=== PATIENT | male | born 1970 | race Caucasian/White ===

== ENCOUNTER → 2020-03-31 11:06 | Outpatient (BNVA) | payer BC, SELFPAY | PROVIDERS: Visit Provider Surgery | DX: R10.9 Unspecified abdominal pain (principal); Z20.828 Contact with and (suspected) exposure to other viral communicable diseases; Z11.59 Encounter for screening for other viral diseases | CPT/HCPCS: 87635 ==

== ENCOUNTER 2020-04-03 07:16 | Day surgery (SDC) | payer BC, SELFPAY ==
[2020-04-01 12:40] VITALS: BMI 25.3
[2020-04-03 07:26] VITALS: BP 148/93; PULSE 80; RESP 18; TEMP 36; O2SAT 97
[2020-04-03] MEDS: sodium chloride 0.9% 1,000 ML 30 ML IV (07:39)
--- NOTE | 2020-04-03 07:45 | ANES.PREANE2 ---
Pre-Anesthetic Assessment Pre-Anesthetic Assessment: Height/Weight: Height 1.93 m Weight 94.347 kg Temp Pulse Resp BP Pulse Ox 96.8 F L 80 18 148/93 97 04/03/20 07:26 04/03/20 07:26 04/03/20 07:26 04/03/20 07:26 04/03/20 07:26 Preop Diagnosis: family Hx colon cancer Proposed Procedure: Operation Date: 04/03/20 08:30 Proposed Procedures p EGD/Colon 13647 R10.31 R10.31(Not Applicable) - Obed Sow MD s Colonoscopy 44378 R10.13(Not Applicable) - Obed Sow MD Familial anesthetic complications: None Was Beta Robby taken within 24 hours: N/A Last intake: Intake Last Liquid Date 04/02/20 Last Liquid Time 20:00 Last Solid Date 04/01/20 Last Solid Time 18:00 Social: Social History: No alcohol and No tobacco Exam: Pre-Anes Outpt Exam: alert, oriented x 3, clear to auscultation bilaterally and regular rate & rhythm Airway: Cervical ROM: WNL MP: 2 Dentition: Other (bridges) Pulmonary: Comments: allergies Metabolic: Metabolic: Hyperlipidemia Anesthetic Plan: ASA status: 1 Anesthesia: MAC Risk of > 500 ml blood loss (7ml/kg in children): No Meds/Allergies Current Medications: Current Medications Generic Name Dose Route Start Last Admin Trade Name Freq PRN Reason Stop Dose Admin Sodium Chloride 1,000 mls @ 30 ml s/hr 04/03/20 07:30 04/03/20 07:39 Sodium Chloride 0.9% IV 04/04/20 07:29 30 mls/hr .Q24H RASHAD Administration PFSH Anesthesia PFSH: Surgical History H/O circumcision H/O esophagogastroduodenoscopy H/O laser assisted in situ keratomileusis H/O left inguinal hernia repair Family History Mother Anesthesia complication Clotting disorder Cancer breast Grandmother CAD (coronary artery disease) Cancer paternal colon Diabetes Denies family history of Bleeding disorder Social History Smoking and tobacco status: never smoked Alcohol intake: current Alcohol intake frequency: holidays/special occasions only Lives independently: Yes Marital status: Single Current occupational status: employed History of recent travel: No Data Anesthesia Cardiac Studies: No Data to Display
--- NOTE | 2020-04-03 08:04 | W.PM.OPSUD ---
Surgery/Procedure H&P Update DATE OF PROCEDURE: April 03, 2020 DATE H&P PERFORMED: 03/11/20 H&P UPDATE INFORMATION: I have reviewed H&P completed within last 30 days, I have examined patient prior to procedure and No changes to prior documentation PREOP DIAGNOSIS: family Hx colon cancer PLANNED PROCEDURE: Operation Date: 04/03/20 08:30 Proposed Procedures p EGD/Colon 34084 R10.31 R10.31(Not Applicable) - Obed Sow MD s Colonoscopy 51629 R10.13(Not Applicable) - Obed Sow MD
[2020-04-03 08:54] VITALS: BP 131/87; PULSE 61; RESP 16; TEMP 36.8; O2SAT 98
[2020-04-03 09:06] VITALS: BP 162/93; PULSE 58; RESP 20; O2SAT 97
--- NOTE | 2020-04-03 20:13 | ANE.PACU2 ---
Inpatient post-anesthesia follow up: Airway intact: Yes Vital signs: Temperature 98.2 F Pulse Rate 58 Respiratory Rate 20 Blood Pressure 162/93 Pulse Oximetry 97 Oxygen Delivery Me thod Room Air Oxygen Flow Rate Fraction of Inspir ed Oxygen Hydration adequate: Yes Nausea and vomiting: No Pain level: 1 Mental status: Baseline
== END 2020-04-03 09:31 | disposition home or self-care (01) ==
PROVIDERS: PCP Family Medicine; Visit Provider Surgery
PROC: 0DJ08ZZ Inspection of Upper Intestinal Tract, Via Natural or Artificial Opening Endoscopic (ICD-10-PCS; CPT 43235; principal; 2020-04-03 08:30)
PROC: 0DJD8ZZ Inspection of Lower Intestinal Tract, Via Natural or Artificial Opening Endoscopic (ICD-10-PCS; CPT 45378; 2020-04-03 08:30)
DX: R10.30 Lower abdominal pain, unspecified (principal); R10.13 Epigastric pain; Z80.0 Family history of malignant neoplasm of digestive organs; E78.5 Hyperlipidemia, unspecified; K44.9 Diaphragmatic hernia without obstruction or gangrene; K29.60 Other gastritis without bleeding; K64.0 First degree hemorrhoids
CPT/HCPCS: 12345; 43239; 45380; 88305; J2704; J7030

== ENCOUNTER 2020-04-07 07:46 | Outpatient (CLI) | payer BC, SELFPAY ==
--- NOTE | 2020-04-07 08:00 | US_ITS ---
WS: [id number] RIGHT UPPER QUADRANT ULTRASOUND HISTORY: chronic abdominal pain COMPARISON: None available. Liver: 17.3 cm in length. Liver is very slightly enlarged. No hepatic steatosis. No mass or bile duct dilatation. Gallbladder: Normally distended gallbladder with no stones or wall thickening. CBD: 0.3 cm Pancreas: Normal size and echogenicity. Right kidney: 11.0 cm in length. Normal size and echogenicity. No hydronephrosis or mass. Aorta and IVC: Unremarkable abdominal aorta and IVC. No ascites. US/US gall bladder 89776 IMPRESSION: Mild hepatomegaly. Otherwise negative.
== END 2020-04-07 07:47 | disposition home or self-care (01) ==
PROVIDERS: PCP Family Medicine; Visit Provider Surgery
DX: R10.9 Unspecified abdominal pain (principal); R16.0 Hepatomegaly, not elsewhere classified
CPT/HCPCS: 76705

== ENCOUNTER → 2022-03-23 08:12 | Outpatient (BNVA) | payer BC, SELFPAY | PROVIDERS: PCP Family Medicine; Visit Provider Family Medicine | DX: Z00.00 Encounter for general adult medical examination without abnormal findings (principal) | CPT/HCPCS: 80053; 80061; 84153 ==

== ENCOUNTER → 2023-04-01 07:55 | Outpatient (BNVA) | payer BC, OTHER, SELFPAY | PROVIDERS: PCP Family Medicine; Visit Provider Family Medicine | DX: Z00.00 Encounter for general adult medical examination without abnormal findings (principal) | CPT/HCPCS: 80053; 80061; 82306; 84153 ==

== ENCOUNTER → 2023-09-12 10:28 | Outpatient (BNVA) | payer BC, SELFPAY | PROVIDERS: PCP Family Medicine; Visit Provider Clinical Nurse Specialist Adult Health | DX: J02.9 Acute pharyngitis, unspecified (principal) | CPT/HCPCS: 87071; 87400; 87426; 87880 ==

== ENCOUNTER → 2024-04-03 07:37 | Outpatient (BNVA) | payer BC, OTHER, SELFPAY | PROVIDERS: PCP Family Medicine; Visit Provider Family Medicine | DX: Z00.00 Encounter for general adult medical examination without abnormal findings (principal); R97.20 Elevated prostate specific antigen [PSA]; I10 Essential (primary) hypertension; R79.89 Other specified abnormal findings of blood chemistry | CPT/HCPCS: 80053; 80061; 82306; 84153 ==

== ENCOUNTER 2024-04-24 05:50 | Day surgery (SDC) | payer BC, SELFPAY ==
[2024-04-24] VITALS (10 sets, daily range): BP systolic 128–163; BP diastolic 62–87; PULSE 52–65; RESP 16–18; TEMP 36.1–36.9; O2SAT 94–100; BMI 25.7
[2024-04-24] MEDS: sodium chloride 0.9% 1,000 ML 30 ML IV (06:12)
--- NOTE | 2024-04-24 06:29 | ANES.PREANE2 ---
Pre-Anesthetic Assessment Height/Weight: Height 6 ft 4 in Weight 211 lb Temp Pulse Resp BP Pulse Ox O2 Del Method 98.5 F 65 18 163/87 98 Room Air 04/24/24 06:05 04/24/24 06:05 04/24/24 06:05 04/24/24 06:05 04/24/24 06:05 04/24/24 06:07 Preop Diagnosis: Sensorineural hearing loss Operation Date: 04/24/24 07:10 Proposed Procedures p Right ear Sentio Bone anchored hearing aid placement(Right) - Cliff Timmons MD Was Beta Robby taken within 24 hours: N/A Was Clonidine taken within 24 hours: N/A Last intake: Intake Last Liquid Date 04/23/24 Last Liquid Time 19:30 Last Solid Date 04/23/24 Last Solid Time 19:30 Social No alcohol and No tobacco Exam alert, oriented x 3, clear to auscultation bilaterally and regular rate & rhythm Airway Submandibular: within normal limits Cervical ROM: within normal limits Mallampati: Class I Dentition: full Anesthetic Plan ASA status: 2 Anesthesia: General Other: No prior issues with anesthesia NPO since yesterday History of TMJ Preop BP 163/87, denies hypertension Patient also denies any pulmonary issues Labs 04/03/2024 reviewed and acceptable for procedure Plan for general anesthesia Medications/Allergies Home Medications Medication Instructions Recorded Confirmed Last Taken Type fexofenadine 180 mg tablet 180 mg PO Q24H 03/11/20 04/23/24 04/23/24 History (Dorothy Allergy) fluticasone propionate 50 1 spray intranasal DAILY 08/04/20 04/23/24 Unknown History mcg/actuation nasal spray,suspension (Allergy Relief (fluticasone)) bimatoprost 0.03 % eye drops 1 drp ophthalmic (eye) DAILY 04/20/22 04/23/24 04/23/24 History Allergies Allergy/AdvReac Type Severity Reaction Status Date / Time No Known Allergies Allergy Verified 04/24/24 06:03 Current Medications Generic Name Dose Route Start Last Admin Trade Name Freq PRN Reason Stop Dose Admin Sodium Chloride 1,000 mls @ 30 mls/hr 04/23/24 14:30 04/24/24 06:12 Sodium Chloride 0.9% IV 04/24/24 14:29 30 mls/hr .Q24H RASHAD Administration PFSH Anesthesia Surgical History Status post colonoscopy (04/03/20) normal H/O circumcision H/O esophagogastroduodenoscopy (04/03/20) hiatal hernia and gastritis H/O laser assisted in situ keratomileusis H/O left inguinal hernia repair Family History Mother Anesthesia complication Clotting disorder Cancer breast Grandmother CAD (coronary artery disease) Cancer paternal colon Diabetes Denies family history of Bleeding disorder Social History Smoking and tobacco/nicotine status: unknown if used tobacco/nicotine Alcohol intake: current Alcohol intake frequency: holidays/special occasions only Substance/Drug Use: never Lives independently: Yes Marital status: Single Current occupational status: employed Data Anesthesia Cardiac Studies: No Data to Display
--- NOTE | 2024-04-24 06:53 | W.PM.OPSUD ---
Surgery/Procedure H&P Update DATE OF PROCEDURE: April 24, 2024 DATE H&P PERFORMED: 03/30/24 CHANGES TO PREVIOUS DOCUMENTATION: None PREOP DIAGNOSIS: Sensorineural hearing loss PRIMARY INDICATION FOR PROCEDURE: Hearing Loss PLANNED PROCEDURE: Operation Date: 04/24/24 07:10 Proposed Procedures p Right ear Sentio Bone anchored hearing aid placement(Right) - Cliff Timmons MD
[2024-04-24] MEDS: ceFAZolin 2,000 mg SDV 2000 MG IVP (07:18)
[2024-04-24] MEDS: lidocaine-epi 1% 20 mL INJ INJECTION (08:11)
[2024-04-24] MEDS: neomycin-poly-bacitracin oint 28 gm 1 APPLIC TOPICAL (09:26)
--- NOTE | 2024-04-24 10:04 | PM.OP ---
Operative Report Date of procedure: April 24, 2024 Pre-op diagnosis: Right ear hearing loss Post-op diagnosis: same Post-op findings: Normal right mastoid/ear Procedure done: Right ear Sentio Bone Anchored Hearing Aid Placement Implants: Sentio Bone Anchored Hearing aid Specimens removed/disposition: None Pathology: none sent Surgeon: Cliff Timmons Surgeon: Cliff Timmons MD Maintenance Service Supervisor: Gustavo Murphy Anesthesia: General Estimated blood loss (mL): 10 IV fluids (mL): 700 Complications: None Findings: Normal right mastoid bone Condition: stable Disposition: PACU Brief History: 53 yo wm with a h/o right sided hearing loss who desires surgical therapy. Procedure: The patient was identified in the preoperative holding area and was taken to the operating room where he was placed on the operating table in the supine position. Anesthesia was obtained with general endotracheal anesthesia and the table was then turned 180 degrees. The patient's head was turned to the left exposing the right ear to the operating surgeon. The surgical template was used to jonathon out the implant site on the patient's head after it was shaved and the patient was then prepped and draped in the usual sterile fashion. The wound was injected with local anesthesia and 10 minutes were allowed to pass. A curvilinear incision was made in the right postauricular crease with 15 blade that was carried down to the to the mastoid periosteum. A subperiosteal dissection was then accomplished exposing the mastoid bone. The implant dissection site was marked out on the patient's mastoid bone and then using a 4 mm bit and an otologic drill, a 2 mm deep well was dissected out of the mastoid bone with a ramp. Once the well was the appropriate size the implant was placed subperiosteally and was secured in place with the included strap. Once the implant was secured the periosteum was then redraped over the implant and was sutured in place with 4-0 Monocryl sutures. At this point the wound closed in layers with interrupted 4-0 Monocryl suture subcu and a running 5-0 Prolene on the skin. At this point the procedure was terminated and control of the patient was returned to anesthesia where he underwent an uneventful reversal of anesthesia and extubation was taken to recovery in stable condition. There were no operative or anesthetic complications.
--- NOTE | 2024-04-24 10:30 | SUR.PHASEI ---
As pt was ready to be discharged from [facility], he rated his pain at 6/10. I asked the pt if he would like IV pain medication for the pain. He stated he would not. I told him he could have an oral pain medication before he was discharged home if he would like. He agreed to this.
[2024-04-24] MEDS: fentaNYL 50 mcg/mL INJ 2mL IVP (10:36)
[2024-04-24] MEDS: HYDROcodone-acetaminophen 5-325 mg Tablet 1 TAB PO (11:03)
--- NOTE | 2024-04-24 11:31 | ANE.PACU2 ---
Inpatient post-anesthesia follow up: Airway intact: Yes Vital signs: Temperature 97.1 F Pulse Rate 58 Respiratory Rate 17 Blood Pressure 147/71 Pulse Oximetry 98 Oxygen Delivery Me thod Room Air Oxygen Flow Rate 4 Fraction of Inspir ed Oxygen Hydration adequate: Yes Nausea and vomiting: No Pain level: 1 Mental status: Baseline
== END 2024-04-24 11:31 | disposition home or self-care (01) ==
PROVIDERS: PCP Family Medicine; Visit Provider Specialist
PROC: (CPT 69714; principal; 2024-04-24 07:00)
DX: H91.91 Unspecified hearing loss, right ear (principal)
CPT/HCPCS: 69714; C1713; J0131; J0690; J1100; J1200; J2250; J2371; J2405; J2704; J3010; J3490; J7030

== ENCOUNTER → 2024-10-11 15:38 | Outpatient (BNVA) | payer BC, OTHER, SELFPAY | PROVIDERS: PCP Family Medicine; Visit Provider Family Medicine | DX: R39.11 Hesitancy of micturition (principal) | CPT/HCPCS: 81000; 87086 ==

== ENCOUNTER → 2025-04-25 09:50 | Outpatient (BNVA) | payer BC, OTHER, SELFPAY | PROVIDERS: PCP Family Medicine; Visit Provider Family Medicine | DX: Z00.00 Encounter for general adult medical examination without abnormal findings (principal); N40.0 Benign prostatic hyperplasia without lower urinary tract symptoms; E55.9 Vitamin D deficiency, unspecified | CPT/HCPCS: 80053; 80061; 82652; 84153 ==